=== PATIENT | female | born 1965 | race Caucasian/White ===

== ENCOUNTER 2017-06-02 18:47 | Emergency (ER) | payer MEDICAID ==
[~2017-06-02] VITALS: Ht 165.1 cm; Wt 80.7 kg
[2017-06-02 19:00] VITALS: BP_SYST 136
[2017-06-02] MEDS ORDERED: KETOROLAC TROMETHAMINE 60 MG/2 ML VIAL IM ONE (20:15)
[2017-06-02 21:19] LABS: BASOPHILS # (AUTO) 0.1 K/uL (0.0-0.2); BASOPHILS % (AUTO) 1.2 % (0.0-2.0); EOSINOPHILS # (AUTO) 0.1 K/uL (0.0-0.4); HEMATOCRIT 29.8 % (36-48); HEMOGLOBIN 8.9 g/dL (12.0-16.0); LYMPHOCYTES # (AUTO) 1.8 K/uL (1.0-5.5); LYMPHOCYTES % (AUTO) 26.3 % (20.5-51.5); MEAN CORPUSCULAR HEMOGLOBIN 21 pg (27-31); MEAN CORPUSCULAR HGB CONC 30 % (32-36); MEAN CORPUSCULAR VOLUME 69 fL (79.0-98.0); MONOCYTES # (AUTO) 0.8 K/uL (0.0-1.0); MONOCYTES % (AUTO) 11.4 % (1.7-9.3); NEUTROPHILS # (AUTO) 4.1 K/uL (1.8-7.7); NEUTROPHILS % (AUTO) 59.1 % (40.0-70.0); PLATELET COUNT (AUTO) 332 K/uL (130-430); RED BLOOD CELL COUNT(AUTO) 4.35 MIL/uL (4.2-6.2); RED CELL DISTRIBUTION WIDTH 18.5 % (9.0-15.0); WHITE BLOOD COUNT (AUTO) 6.9 K/uL (4.8-10.8)
[2017-06-02 21:28] LABS: CREATININE 0.53 mg/dL (0.55-1.30); POTASSIUM 3.4 mmol/L (3.5-5.1)
[2017-06-02 21:56] VITALS: BP_SYST 136
== END 2017-06-02 21:56 | disposition home or self-care (01) ==
LOC: SED 18:47
DX: G62.9 Polyneuropathy, unspecified (principal); I10 Essential (primary) hypertension
CPT/HCPCS: 36415; 73610; 73630; 80048; 85025; 96372; 99285; J1885

== ENCOUNTER 2019-01-14 10:35 | Emergency (ER) | payer MEDICAID ==
[~2019-01-14] VITALS: Ht 160 cm; Wt 78.9 kg
--- NOTE | 2019-01-14 11:10 | NUR ---
Patient to ER bed 4 to gown for evaluation. Side rails up.
--- NOTE | 2019-01-14 11:15 | NUR ---
ER at bedside examining patient.
--- NOTE | 2019-01-14 11:20 | NUR ---
Pt presents to ED c/o LLE swelling.
[2019-01-14 11:56] LABS: BASOPHILS # (AUTO) 0.1 K/uL (0.0-0.2); BASOPHILS % (AUTO) 1.1 % (0.0-2.0); EOSINOPHILS # (AUTO) 0.2 K/uL (0.0-0.4); EOSINOPHILS % (AUTO) 3.5 % (0.0-4.0); HEMATOCRIT 28.5 % (36-48); HEMOGLOBIN 8.7 g/dL (12.0-16.0); LYMPHOCYTES # (AUTO) 1.3 K/uL (1.0-5.5); LYMPHOCYTES % (AUTO) 22.7 % (20.5-51.5); MEAN CORPUSCULAR HEMOGLOBIN 21 pg (27-31); MEAN CORPUSCULAR HGB CONC 30 % (32-36); MONOCYTES # (AUTO) 0.6 K/uL (0.0-1.0); MONOCYTES % (AUTO) 11.2 % (1.7-9.3); NEUTROPHILS # (AUTO) 3.5 K/uL (1.8-7.7); NEUTROPHILS % (AUTO) 61.5 % (40.0-70.0); PLATELET COUNT (AUTO) 280 K/uL (130-430); RED BLOOD CELL COUNT(AUTO) 4.21 MIL/uL (4.2-6.2); RED CELL DISTRIBUTION WIDTH 18.9 % (9.0-15.0); WHITE BLOOD COUNT (AUTO) 5.6 K/uL (4.8-10.8)
--- NOTE | 2019-01-14 12:00 | NUR ---
Patient transported to radiology via WC, accompanied by rad staff.
[2019-01-14 12:02] LABS: MEAN CORPUSCULAR VOLUME 68 fL (79.0-98.0)
[2019-01-14 12:14] LABS: CALCIUM 8.9 mg/dL (8.4-11.0); CREATININE 0.57 mg/dL (0.55-1.30); POTASSIUM 4.2 mmol/L (3.5-5.1)
--- NOTE | 2019-01-14 12:15 | NUR ---
Returned from radiology, back to [facility].
[2019-01-14 12:18] LABS: ALBUMIN 3.5 g/dL (3.4-4.8); INR 0.9 (0.8-1.2); PROTHROMBIN TIME 9.6 SECS (9.5-12.5); TOTAL BILIRUBIN 0.3 mg/dL (0.0-1.0)
[2019-01-14 13:39] VITALS: BP_SYST 132
--- NOTE | 2019-01-14 13:40 | NUR ---
Patient given written and verbal discharge instructions and verbalizes understanding. ER MD discussed with patient the results and treatment provided. Patient in stable condition. ID arm band removed. Rx of Cefalexin given. Patient educated on pain management and to follow up with PMD. Pain Scale 2/10 tolerable for patient . Opportunity for questions provided and answered. Medication side effect fact sheet provided.
== END 2019-01-14 13:39 | disposition home or self-care (01) ==
LOC: SED 10:35
DX: I87.8 Other specified disorders of veins (principal); I83.92 Asymptomatic varicose veins of left lower extremity; L03.116 Cellulitis of left lower limb; R03.0 Elevated blood-pressure reading, without diagnosis of hypertension
CPT/HCPCS: 36415; 80053; 85025; 85379; 85610-TC; 93971; 99284

== ENCOUNTER 2019-01-28 19:05 | Emergency (ER) | payer MEDICAID ==
[~2019-01-28] VITALS: Ht 160 cm; Wt 78.9 kg
[2019-01-28 19:47] VITALS: BP_SYST 148
--- NOTE | 2019-01-28 19:52 | NUR ---
Pt placed to ER waiting room in stable condition. Urine cup provided.
--- NOTE | 2019-01-28 23:00 | NUR ---
Pt placed to ER bed 07. Pt c/o right calf pain that radiates to posterior knee and to right ankle x 2 weeks. Denies injury or trauma to RLE. Pain worse with weight bearing.
--- NOTE | 2019-01-28 23:24 | NUR ---
Dr. Torres at bedside.
[2019-01-29 00:10] LABS: BILIRUBIN,URINE NEGATIVE (NEGATIVE); BLOOD, URINE NEGATIVE (NEGATIVE); CLARITY/URINE CLEAR (CLEAR); COLOR,URINE YELLOW (YELLOW); GLUCOSE,URINE NEGATIVE (NEGATIVE); KETONES,URINE NEGATIVE (NEGATIVE); LEUKOCYTE ESTERASE ,URINE NEGATIVE (NEGATIVE); NITRITE, URINE NEGATIVE (NEGATIVE); PROTEIN URINE NEGATIVE (NEGATIVE); UROBILINOGEN,URINE 0.2 (0.2-1.0)
[2019-01-29 00:11] LABS: HCG,QUAL RESULT NEGATIVE (NEGATIVE)
--- NOTE | 2019-01-29 00:15 | NUR ---
X-ray at bedside.
--- NOTE | 2019-01-29 01:15 | NUR ---
No needs verbalized at this time.
--- NOTE | 2019-01-29 02:19 | NUR ---
Dr. Torres at bedside to discuss results of U/S.
[2019-01-29 02:40] VITALS: BP_SYST 132
== END 2019-01-29 02:40 | disposition home or self-care (01) ==
LOC: SED 19:05
DX: M77.31 Calcaneal spur, right foot (principal); M77.32 Calcaneal spur, left foot; M19.90 Unspecified osteoarthritis, unspecified site
CPT/HCPCS: 81003; 81025; 84703; 93970; 99284